=== PATIENT | male | born 1985 | race Hispanic/Latino ===

== ENCOUNTER 2021-06-12 08:20 | Emergency (ER) | payer OTHER ==
[2021-06-12 22:37] LABS: SARS-CoV-2 PCR by NAA DETECTED (NotDetected)
== END 2021-06-12 09:35 | disposition home or self-care (01) ==
LOC: CSHERS 08:20
DX: U07.1 COVID-19 (principal); J11.1 Influenza due to unidentified influenza virus with other respiratory manifestations; J32.9 Chronic sinusitis, unspecified
CPT/HCPCS: 87804; 99283; U0003; U0005

== ENCOUNTER 2022-05-31 15:49 | Emergency (ER) | payer OTHER, SELFPAY ==
[2022-05-31] MEDS ORDERED: Ketorolac Tromethamine 30 MG/ML VIAL ONE (18:19)
== END 2022-05-31 18:37 | disposition home or self-care (01) ==
LOC: CSHERS 15:49
DX: M54.42 Lumbago with sciatica, left side (principal)
CPT/HCPCS: 96372; J1885